=== PATIENT | female | born 1940 | race Caucasian/White ===

== ENCOUNTER → 2019-04-09 13:33 | Outpatient (CLI) | payer OTHER, SELFPAY ==
--- NOTE | 2019-04-09 | DI.CT.S_ITS ---
PROCEDURE: CT ABDOMEN PELVIS WO/W CON INDICATIONS: hydronephrosis TECHNIQUE: Optional 5 mm thick noncontrast images acquired from the diaphragm to the symphysis pubis. After the administration of intravenous contrast, 5 mm thick images acquired from the diaphragm to the symphysis pubis after a 10-minute delay. 2 mm thick coronal and sagittal reformats were then performed of the kidneys and ureters. For radiation dose reduction, the following was used: automated exposure control, adjustment of mA and/or kV according to patient size. COMPARISON: None. FINDINGS: Image quality: Excellent. Lung bases: Bibasilar atelectasis is present. No pleural effusion. Nonspecific 6 mm pulmonary nodule present in the right middle lobe. Additional smaller sub-5 mm pulmonary nodule seen in the right lung base, for example image 13 series 4. Urinary system: There is moderate right hydronephrosis and hydroureter. No definite nephrolithiasis is seen. No left-sided urinary obstruction identified. However, the distal ureters are not well-visualized due to high density bowel loops and/or masses present in the pelvis, which measures approximately 15.2 x 11.8 cm overall is intact measurements are difficult due to irregular configuration. The bladder is partially obscured by streak artifact bilateral hip arthroplasties, as well as the heterogeneous mass/ thickened bowel loops within the pelvis. Other solid organs: High density, presumed calcified lesions present within the liver, for example in the region of the jennifer hepatis measuring 2.6 x 2.0 cm and 33 series 2, 2.2 x 1.2 cm image 28 series 2. There also scattered intraperitoneal calcified/high density masses, for example in the left paracolic gutter on image 36 series 2, within the central mesentery image 47 series 2 and within the pelvis, where there is also associated right-sided cystic lesion, measuring 8.2 cm in diameter. There is associated mural and intraluminal nodularity. Gallbladder surgically absent. Biliary system is non dilated. Pancreas enhances normally. Spleen is normal in size and enhancement. No adrenal nodules. Peritoneum and bowel: No definite bowel obstruction. No free fluid or air. Nodes and vessels: No retroperitoneal or mesenteric adenopathy by size criteria. Aorta and inferior vena cava are normal in size. Abdominal wall: No ventral hernias. Pelvis: No pathologic free pelvic fluid. No inguinal hernias or adenopathy. Bones: No suspicious bony lesions. No vertebral body compression fractures. IMPRESSION: Moderate right hydronephrosis and hydroureter. This may be related to mass effect from large ill-defined cystic and solid mass within the pelvis, possibly involving multiple abnormal appearing bowel loops. Recommend surgical consultation and histopathologic sampling. Additional scattered intraperitoneal, hepatic, mesenteric high density/calcified masses of unknown etiology although suspicious for metastatic disease, although diffuse granulomatous process in the differential. No definite nephrolithiasis although the distal ureters are not well seen. Subcentimeter pulmonary nodules as detailed above, warrant further followup with six-month interval chest CT. Dictated by: Severo Montemayor M.D. on 04/09/2019 at 17:21 Approved by: Severo Montemayor M.D. on 04/09/2019 at 17:42
== END ==
PROVIDERS: Visit Provider Urology
DX: N13.30 Unspecified hydronephrosis (principal); R19.00 Intra-abdominal and pelvic swelling, mass and lump, unspecified site; R91.8 Other nonspecific abnormal finding of lung field; J98.11 Atelectasis; Z96.643 Presence of artificial hip joint, bilateral; Z90.49 Acquired absence of other specified parts of digestive tract
CPT/HCPCS: 74178; Q9967

== ENCOUNTER → 2023-05-09 14:19 | Outpatient (CLI) | payer OTHER, SELFPAY | PROVIDERS: PCP Physician Assistant Medical; Referring Provider Physician Assistant Medical; Visit Provider Surgery | DX: K94.03 Colostomy malfunction (principal) | CPT/HCPCS: 99212; 99213 ==

== ENCOUNTER → 2023-05-23 14:01 | Outpatient (CLI) | payer OTHER, SELFPAY | PROVIDERS: PCP Physician Assistant Medical; Referring Provider Student in an Organized Health Care Education/Training Program; Visit Provider Surgery | DX: K94.03 Colostomy malfunction (principal) | CPT/HCPCS: 99212 ==